=== PATIENT | female | born 1965 | race African-American/Black ===

== ENCOUNTER 2022-07-26 07:33 | Outpatient (CLI) | payer BC | END 2022-07-26 07:34 | disposition home or self-care (01) | LOC: SCSMRI 07:33 | PROVIDERS: ATTEND Pediatrics | DX: M51.16 Intervertebral disc disorders with radiculopathy, lumbar region (principal); M48.061 Spinal stenosis, lumbar region without neurogenic claudication | CPT/HCPCS: 72148 ==